=== PATIENT | female | born 1960 ===

== ENCOUNTER → 2024-12-02 08:19 | Outpatient (BNVA) | payer MEDICARE, SELFPAY | PROVIDERS: PCP Internal Medicine; Referring Provider Internal Medicine; Visit Provider Physician Assistant Surgical | DX: M35.02 Sjogren syndrome with lung involvement (principal); J84.9 Interstitial pulmonary disease, unspecified | CPT/HCPCS: 94618; 99205 ==

== ENCOUNTER 2024-12-02 14:45 | Outpatient (RCR) | payer MEDICARE, SELFPAY | END 2024-12-05 23:59 | disposition home or self-care (01) | LOC: PRC 14:45 | PROVIDERS: PCP Internal Medicine; Visit Provider Student in an Organized Health Care Education/Training Program ==

== ENCOUNTER 2024-12-24 14:31 | Outpatient (RCR) | payer MEDICARE, SELFPAY | END 2025-01-05 23:59 | disposition home or self-care (01) | LOC: PRC 14:31 | PROVIDERS: PCP Internal Medicine; Visit Provider Student in an Organized Health Care Education/Training Program | DX: M35.02 Sjogren syndrome with lung involvement (principal); J84.9 Interstitial pulmonary disease, unspecified; Z51.89 Encounter for other specified aftercare | CPT/HCPCS: 94626 ==

== ENCOUNTER → 2025-04-29 13:03 | Outpatient (BNVA) | payer MEDICARE, SELFPAY | PROVIDERS: PCP Internal Medicine; Referring Provider Internal Medicine; Visit Provider Physician Assistant Surgical | DX: M35.02 Sjogren syndrome with lung involvement (principal); J84.9 Interstitial pulmonary disease, unspecified | CPT/HCPCS: 99215; 94618 ==

== ENCOUNTER 2025-04-30 09:38 | Outpatient (RCR) | payer MEDICARE, SELFPAY | END 2025-05-07 23:59 | disposition home or self-care (01) | LOC: PRC 09:38 | PROVIDERS: PCP Internal Medicine; Visit Provider Internal Medicine Pulmonary Disease ==